=== PATIENT | female | born 1975 | race Two or more races ===

== ENCOUNTER 2025-03-19 05:14 | Emergency (ER) | payer BC ==
[~2025-03-19] VITALS: Ht 165.1 cm; Wt 71.7 kg
[2025-03-19] MEDS ORDERED: CLONAZEPAM0.125 MG PO (05:18)
[2025-03-19] MEDS ORDERED: CLONAZEPAM0.25 MG PO (05:18)
[2025-03-19] MEDS ORDERED: KETOROLAC TROMETHAMINE 30 MG VIAL IV STA (05:41)
[2025-03-19] MEDS ORDERED: PROMETHAZINE HCL 50 MG/ML AMPUL IM STA (05:41)
[2025-03-19] MEDS ORDERED: SODIUM CHLORIDE 0.45 % 1,000 ML IV ONE (05:45)
[2025-03-19 06:29] LABS: BASO % 0.4 % (0.1-1.2); EOS # 0.23 (0.04-0.54); EOS % 2.0 % (0.7-7.0); LYMPH # 3.13 (1.18-3.74); LYMPH % 27.7 % (19.3-53.1); MEAN PLATELET VOLUME 9.90 fl (9.4-12.4); MONO # 0.57 (0.24-0.82); MONO % 5.0 % (4.7-12.5); NEUT # 7.31 (1.56-6.13); NEUT % 64.5 % (34.0-71.1); RED CELL DISTRIBUTION WIDTH 18.4 % (11.6-14.4)
[2025-03-19 06:53] LABS: BUN CREA RATIO 19.0 (7.0-25.0); CREATININE SERUM 0.62 mg/dL (0.55-1.02); GFR 102.31; GLUCOSE FASTING 110.0 mg/dL (65-100); OSMOLALITY SERUM 280.0 MOSM/KG (275-295)
[2025-03-19 07:26] LABS: URINE APPEARANCE Clear; URINE BILIRRUBIN Negative (NEGATIVE); URINE BLOOD Large; URINE COLOR Yellow; URINE GLUCOSE Negative (NEGATIVE); URINE KETONE Negative (NEGATIVE); URINE LEUKOCYTE Trace; URINE NITRATE Negative; URINE PROTEIN Trace (NEGATIVE); URINE UROBILINOGEN 0.2 E.U./dl
[2025-03-19 07:30] LABS: URINE BACTERIA 76.7 uL (0.0-1933); URINE EPITHELIAL CELLS 5.6 uL (0.0-38.8); URINE RBC 4385.4 uL (0.0-20.8); URINE WBC 24.4 uL (0.0-23.2)
[2025-03-19 07:47] LABS: URINE CAST 0.00 uL (0.0-1.40)
[2025-03-19] MEDS ORDERED: PEPCID AC20 MG PO (09:36)
[2025-03-19] MEDS ORDERED: TAMS0.4C PO (09:36)
[2025-03-19] MEDS ORDERED: CIPRO500 MG PO (09:36)
[2025-03-19] MEDS ORDERED: METRONIDAZOLE500 MG PO (09:36)
[2025-03-19] MEDS ORDERED: NORFLEX100MG PO (09:36)
== END 2025-03-19 09:46 | disposition home or self-care (01) ==
LOC: ER 05:14
PROVIDERS: General Practice
DX: R10.32 Left lower quadrant pain (principal); N13.30 Unspecified hydronephrosis; N20.2 Calculus of kidney with calculus of ureter; K57.30 Diverticulosis of large intestine without perforation or abscess without bleeding; K76.0 Fatty (change of) liver, not elsewhere classified